=== PATIENT | female | born 1975 | race Caucasian/White ===

== ENCOUNTER 2021-04-19 14:19 | Emergency (ER) | payer BC, SELFPAY ==
[2021-04-19 14:32] VITALS: BP 150/103; PULSE 82; RESP 20; TEMP 37.2; O2SAT 98
--- NOTE | 2021-04-19 15:31 | ED.DENTAL ---
HPI - Dental/Oral General Chief complaint: Dental/Oral Stated complaint: tooth pain Time Seen by Provider: 04/19/21 15:25 Source: patient and RN notes reviewed Mode of arrival: ambulatory Limitations: no limitations History of Present Illness HPI Narrative: Patient presents today complaining of right lower posterior wisdom tooth pain x1 month. She presents today complaining of swelling to her right lower jawline since yesterday. She reports no pain at rest, but pain increases to 7/10 with touching of the jaw and gumline. She denies shortness of breath, fever, difficulty swallowing. She does have a dentist, but has not had an appointment recently. Related Data Allergies Allergy/AdvReac Type Severity Reaction Status Date / Time No Known Allergies Allergy Verified 04/19/21 14:35 Review of Systems Review of Systems: CONSTITUTIONAL: Denies body aches, fever, chills, or sweats. EYES: Denies visual changes, redness, or discharge. ENT: Denies rhinorrhea, congestion, sore throat, or otalgia.+ Right lower jaw swelling CARDIOVASCULAR: Denies chest pain, palpitations, or edema. RESPIRATORY: Denies cough or dyspnea. GASTROINTESTINAL: Denies abdominal pain, nausea, vomiting, or diarrhea. GENITOURINARY: Denies dysuria or hematuria. SKIN: Denies rash, itching, or wounds. MUSCULOSKELETAL: Denies back pain, joint pain, or myalgia. NEUROLOGIC: Denies headache, numbness, tingling, or weakness. PSYCH: Denies depression or anxiety. PMFSH Comments At time of signature, I have reviewed and agree with nursing past medical, surgical, social and family history unless otherwise noted. Please see nursing chart for further information. There is no relevant family history pertinent to the presenting complaint Exam Narrative: GENERAL: Well-appearing, well-nourished, and in no acute distress. HEAD: Normocephalic, atraumatic. EYES: EOMI. No redness or drainage. Conjunctivae normal. ENT: Mucous membranes pink and moist. Throat normal. Uvula midline. Right lower jaw tenderness and mild swelling. Swelling and mild erythema to the right lower gumline. No obvious periapical abscess. Right lower wisdom tooth appears normal. NECK: Normal AROM. Supple. No lymphadenopathy. CHEST: No respiratory distress. EXTREMITIES: Normal range of motion. No edema. SKIN: Warm, dry, no rash. Capillary refill normal. Normal skin turgor. NEURO: No focal deficits. Alert and oriented x3. Gait steady. PSYCH: Normal affect. No signs of depression or anxiety. Course Course Level of Care: Express Care Visit Vital Signs Vital signs: Vital Signs Temperature 99.0 F 04/19/21 14:32 Pulse Rate 82 04/19/21 14:32 Respiratory Rate 20 04/19/21 14:32 Blood Pressure 150/103 H 04/19/21 14:32 Pulse Oximetry 98 04/19/21 14:32 Temperature 99.0 F 04/19/21 14:32 Pulse Rate 82 04/19/21 14:32 Respiratory Rate 20 04/19/21 14:32 Blood Pressure 150/103 H 04/19/21 14:32 Pulse Oximetry 98 04/19/21 14:32 Reviewed. Pt has been instructed to follow up with her PCP regarding her elevated blood pressure today. MDM - Dental/Oral Differential Diagnosis Differential diagnosis: Likely gingival abscess, dental caries, toothache, dental abscess and fracture of tooth Critical Care Time Critical Care Time Critical Care Time: No Discharge Plan Discharge Clinical Impression: Dental abscess Patient Disposition: Home, Self-Care Condition: Stable Instructions: Antibiotic Form, Dental Abscess (ED) Additional Instructions: Please take the Augmentin and prednisone as directed. Consider starting the prednisone tomorrow can keep you awake at night if you take it too far into the afternoon. Take an anti-inflammatory such as Aleve or ibuprofen for pain and inflammation. Call and make an appointment with your dentist for follow-up. Your blood pressure was elevated above 120/80 today at Urgent Care. This puts you above the threshold for follow up. Please sc
== END 2021-04-19 15:40 | disposition home or self-care (01) ==
PROVIDERS: Emergency Provider Nurse Practitioner; PCP Family Medicine
DX: K04.7 Periapical abscess without sinus (principal)
CPT/HCPCS: 99213; G0463